=== PATIENT | male | born 1990 | race American Indian/Alaskan Native ===

== ENCOUNTER 2018-10-25 17:21 | Emergency (ER) | payer OTHER ==
[2018-10-25 17:34] VITALS: BMI 22.4
[2018-10-25 17:35] VITALS: RESP 16; TEMP 98.1; O2SAT 98
--- NOTE | 2018-10-25 19:37 | C.PDOC ---
History Of Present Illness 28 yo male come in for evaluation of head injury sustained today AM " jumped up from by bed in AM when heard alarm and hit head over backboard". Pt reports, through out the day developed some headache, dizziness. Denies LOC, syncope, severe headache, vomiting, visual changes, focal deficits, denies any other active complaints. Time Seen by Provider: 10/25/18 18:05 Chief Complaint (Nursing): Headache History Per: Patient Past Medical History Reviewed: Historical Data, Nursing Documentation, Vital Signs Vital Signs: Last Vital Signs Temp 98.1 F 10/25/18 17:34 Pulse 65 10/25/18 17:34 Resp 16 10/25/18 17:34 BP 126/83 10/25/18 17:34 Pulse Ox 98 10/25/18 17:34 - Medical History PMH: No Chronic Diseases Surgical History: No Surg Hx Family History: States: No Known Family Hx - Social History Hx Tobacco Use: Yes Hx Alcohol Use: No Hx Substance Use: No Review Of Systems Except As Marked, All Systems Reviewed And Found Negative. Constitutional: Negative for: Fever, Chills Eyes: Negative for: Vision Change ENT: Negative for: Ear Discharge, Nose Discharge, Throat Pain Cardiovascular: Negative for: Chest Pain, Palpitations Gastrointestinal: Negative for: Nausea, Vomiting Neurological: Positive for: Headache, Dizziness. Negative for: Weakness, Numbness, Altered Mental Status Physical Exam - Physical Exam Appears: Well, Non-toxic, No Acute Distress Skin: Normal Color, Warm, Dry Head: Normacephalic, Tenderness (mild over Left parietal scalp), Swelling (left parietal scalp) Eye(s): bilateral: PERRL, EOMI Ear(s): Bilateral: Normal Nose: No Flaring, No Discharge Oral Mucosa: Moist Throat: No Drooling Neck: Normal ROM, Trachea Midline, No Midline Cervical Tenderness, No Paracervical Tenderness, No Step Off Deformity, Supple Cardiovascular: Rhythm Regular Respiratory: No Decreased Breath Sounds, No Accessory Muscle Use, No Stridor, No Wheezing Gastrointestinal/Abdominal: Soft, No Tenderness Extremity: Normal ROM, No Deformity Neurological/Psych: Oriented x3, Normal Speech, Normal Cognition, Normal Motor, Normal Sensation, Normal Reflexes ED Course And Treatment O2 Sat by Pulse Oximetry: 98 Pulse Ox Interpretation: Normal - CT Scan/US CAT Head Other Rad Studies (CT/US): Read By Radiologist, Radiology Report Reviewed CT/US Interpretation: IMPRESSION: No evidence of acute intracranial pathology. Thank you for your kind referral of this patient. Progress Note: On re-eval, pt is afebrile, hemodynamicalys table. Ambulatory in ED with stable gait. head: NC, mild contusion noted to Left parietal scalp. ENT: no acute findings. Neck: Supple, (-) midline tenderness. Neuorlogicaly intact. CT head review (-) acute findings. Pt has clinical findings c/w head injury. pt advised OBS 48 hrs for any sign of head injury-return if any new changes for re-evaluation. ref. to f/u with PMD in 2-3 dyas for re-evaluation. Return if any worsening or new changes. Disposition Counseled Patient/Family Regarding: Studies Performed, Diagnosis, Need For Followup - Disposition Referrals: [facility] [Outside] Disposition: HOME/ ROUTINE Disposition Time: 19:37 Condition: STABLE Additional Instructions: OBSERVE 48 HRS FOR ANY NEW CHANGES-RETURN TO ED IF ANY VOMITING, LETHARGY OR ANY WORSENING OF SYMPTOMS TYLENOL NEED FRO HEADACHE NO PHYSICAL ACTIVITY FOR 1 WEEK FOLLOW UP WITH PMD IN 2-3 DAYS FOR RE-EVALUATION Instructions: Minor Head Injury Forms: [facility] (Al[place]ian) - Clinical Impression Clinical Impression: Head injury
[2018-10-25 20:00] VITALS: BP 122/68; PULSE 72
--- NOTE | 2018-10-26 08:05 | CT ---
Date of service: 10/25/2018 PROCEDURE: CT HEAD WITHOUT CONTRAST. HISTORY: injury COMPARISON: None available. TECHNIQUE: Axial computed tomography images were obtained through the head/brain without intravenous contrast. 3D reformatted images of the skull were also obtained Radiation dose: Total exam DLP = 1133.25 mGy-cm. This CT exam was performed using one or more of the following dose reduction techniques: Automated exposure control, adjustment of the mA and/or kV according to patient size, and/or use of iterative reconstruction technique. FINDINGS: HEMORRHAGE: No intracranial hemorrhage. BRAIN: No mass effect or edema. No atrophy or chronic microvascular ischemic changes. VENTRICLES: Unremarkable. No hydrocephalus. CALVARIUM: Unremarkable. PARANASAL SINUSES: Unremarkable as visualized. No significant inflammatory changes. MASTOID AIR CELLS: Unremarkable as visualized. No inflammatory changes. OTHER FINDINGS: None. IMPRESSION: No evidence of acute intracranial hemorrhage intracranial collection mass effect or midline shift. Preliminary report contains concordant findings was submitted by [facility].
== END 2018-10-25 19:59 | disposition home or self-care (01) ==
LOC: C.ER 17:21
DX: S09.90XA Unspecified injury of head, initial encounter (principal); W22.8XXA Striking against or struck by other objects, initial encounter